=== PATIENT | female | born 1995 | race Caucasian/White ===

== ENCOUNTER 2017-02-04 09:49 | Emergency (ER) | payer BC ==
[2017-02-04 09:59] VITALS: BP 90/64
--- NOTE | 2017-02-04 10:21 | EDM.PDOC ---
ED HPI ENT - General Chief Complaint: ENT Problem Stated Complaint: Syncopal Episode; Sore throat; dehydration Time Seen by Provider: 02/04/17 10:12 Source of Information: Reports: Patient, Family, RN, RN notes reviewed History Limitations: Reports: No limitations - History of Present Illness INITIAL COMMENTS - FREE TEXT/NARRATIVE: Patient presents to the emergency room at [facility] after she had a syncopal episode at home. The patient states she has not been feeling well the past few days due to with sore throat. The patient states she has been exposed to strep throat. The patient currently works at a daycare. The patient states she is trying to stay well hydrated with good by mouth fluid intake but still feels very thirsty at times. Close contacts with similar symptoms. The patient denies any eye or ear symptomatology. Symptom Onset Date: 02/04/17 Symptom Onset Time: 09:30 Location: Reports: throat - Related Data Allergies/ADRs: Allergies Allergy/AdvReac Type Severity Reaction Status Date / Time No Known Allergies Allergy Verified 02/04/17 10:04 Home Meds: Home Meds . [No Known Home Meds] 02/04/17 [History] Past Medical History - Past Health History Medical/Surgical History: Denies Medical/Surgical History Social & Family History - Tobacco Use Smoking Status *Q: Never Smoker ED ROS ENT - Review of Systems Review Of Systems: See Below Constitutional: Reports: fever, weakness, decreased appetite. Denies: chills HEENT: Reports: Throat pain, Throat swelling. Denies: Ear pain, Eye pain, Rhinitis, Sinus problem, Vision change Respiratory: Reports: Cough. Denies: Shortness of Breath Cardiovascular: Denies: Chest pain, Palpitations Skin: Reports: no symptoms Neurological: Reports: Dizziness, Syncope, Weakness. Denies: Headache, Numbness , Paresthesia, Tingling ED EXAM, ENT - Physical Exam Exam: See Below Exam Limited By: No limitations General Appearance: alert, no apparent distress Eye Exam: bilateral eye: EOMI, normal inspection, PERRL Ears: normal external exam, normal canal, hearing grossly normal, normal TMs Nose: clear rhinorrhea Mouth/Throat: Dry mucous membrane, Pharyngeal erythema, Throat pain, Other ( Pharyngeal exudates) Neck: supple Respiratory/Chest: no respiratory distress, lungs clear, normal breath sounds Cardiovascular: regular rate, rhythm Neurological: alert, oriented Skin: Warm, Dry, Intact, Normal color, No rash EKG INTERPRETATION EKG Date: 02/04/17 Time: 10:26 Rhythm: NSR Rate (beats/min): 72 [place]: normal P-wave: present QRS: normal ST-T: normal QT: normal CO/PQ Interval: 0.18 Comparison: NA - no prior EKG EKG Interpretation Comments: 1. Normal Sinus Rhythm; Normal EKG Course - Vital Signs Last Recorded V/S: Last Vital Signs Temp 36.7 C 02/04/17 09:55 Pulse 86 02/04/17 09:55 Resp 12 02/04/17 09:55 BP 90/64 02/04/17 09:55 Pulse Ox 96 02/04/17 09:55 - Orders/Labs/Meds Orders: Active Orders 24 hr Category Date Time Status EKG 12 Lead [EKG Documentation Completion] [RC] STAT Care 02/04/17 10:19 Active CULTURE STREP A CONFIRMATION [] Stat Lab 02/04/17 10:34 Results STREP SCRN A RAPID W CULT CONF [RM] Stat Lab 02/04/17 10:34 Results UA W/MICROSCOPIC [URIN] Stat Lab 02/04/17 10:52 Received Labs: Laboratory Tests 02/04/17 02/04/17 Range/Units 10:45 10:45 WBC 5.3 (4.0-10.0) x10^3/uL RBC 5.06 (4.00-5.50) x10^6/uL Hgb 14.2 (12.0-16.0) g/dL Hct 42.5 (33.0-47.0) % MCV 84.0 (78.0-93.0) fL MCH 28.1 (26.0-32.0) pg MCHC 33.4 (32.0-36.0) g/dL RDW Coeff of Sonia 13.9 (10.0-15.0) % Plt Count 123 L (130-400) x10^3/uL Neut % (Auto) 38.5 L (50.0-80.0) % Lymph % (Auto) 50.0 (25.0-50.0) % Bradley % (Auto) 10.2 (2.0-11.0) % Eos % (Auto) 1.1 (0.0-4.0) % Baso % (Auto) 0.2 (0.2-1.2) % Sodium 141 (136-145) mmol/L Potassium 4.2 (3.5-5.1) mmol/L Chloride 103 (98-107) mmol/L Carbon Dioxide 30 (21-32) mmol/L BUN 7 (7-18) mg/dL Creatinine 0.9 (0.55-1.02) mg/dL Est Cr Clr Drug Dosing TNP Estimated GFR (MDRD) > 60 Glucose 100 (74-106) mg/dL Calcium 8.7 (8.5-10.1) mg/dL Departure - Departure Time of Disposition: 11:19 Disposition: Home, Self-Care 01 Condition: good Clinical Impression: Laryngopharyngitis Syncope Qualifiers: Syncope type: unspecified Qualified Code(s): R55 - Syncope and collapse Instructions: Syncope, Laryngitis Referrals: Natacha Sanders [employer] SUPERVISOR [Primary Care Provider] - Forms: ED Department Discharge Additional Instructions: 1. Stay well hydrated and rest 2. Do warm salt water gargles 3. Change out and buy a new toothbrush 4. Tests were negative - no need for antibiotics 5. See your Primary as symptoms warrant - Problem List Review Problem List Initiated/Reviewed/Updated: Yes - My Orders Last 24 Hours: My Active Orders 02/04/17 10:19 EKG 12 Lead [EKG Documentation Completion] [RC] STAT 02/04/17 10:34 CULTURE STREP A CONFIRMATION [RM] Stat STREP SCRN A RAPID W CULT CONF [RM] Stat 02/04/17 10:52 UA W/MICROSCOPIC [URIN] Stat - Assessment/Plan Last 24 Hours: My Active Orders 02/04/17 10:19 EKG 12 Lead [EKG Documentation Completion] [RC] STAT 02/04/17 10:34 CULTURE STREP A CONFIRMATION [RM] Stat STREP SCRN A RAPID W CULT CONF [RM] Stat 02/04/17 10:52 UA W/MICROSCOPIC [URIN] Stat
[2017-02-04 11:05] LABS: CHLORIDE,CL 103 mmol/L (98-107); SODIUM,NA 141 mmol/L (136-145)
== END 2017-02-04 11:32 | disposition home or self-care (01) ==
LOC: VM.ED 09:49
DX: R55 Syncope and collapse (principal); J06.0 Acute laryngopharyngitis
CPT/HCPCS: 36415; 80048; 81001; 85025; 87081; 87804; 87880; 93005; 99283